=== PATIENT | male | born 1985 | race Caucasian/White ===

== ENCOUNTER 2016-05-28 19:01 | Emergency (ER) | payer SELFPAY | END 2016-05-28 19:03 | disposition left against medical advice (07) | LOC: CED 19:01 | DX: Z53.21 Procedure and treatment not carried out due to patient leaving prior to being seen by health care provider (principal) ==

== ENCOUNTER 2016-05-28 20:19 | Emergency (ER) | payer SELFPAY | END 2016-05-28 20:40 | disposition home or self-care (01) | LOC: CFTX 20:19 | DX: J03.91 Acute recurrent tonsillitis, unspecified (principal) | CPT/HCPCS: 87651; 87880; 99283 ==

== ENCOUNTER 2016-09-07 12:54 | Emergency (ER) | payer OTHER | END 2016-09-07 14:15 | disposition home or self-care (01) | LOC: CFTX 12:54 → CED 12:54 → CFTX 14:09 | DX: M54.16 Radiculopathy, lumbar region (principal); Z88.5 Allergy status to narcotic agent; F17.210 Nicotine dependence, cigarettes, uncomplicated | CPT/HCPCS: 99282; J1885 ==

== ENCOUNTER 2016-10-27 00:45 | Emergency (ER) | payer OTHER ==
[~2016-10-27] VITALS: Ht 172.7 cm; Wt 72.6 kg
== END 2016-10-27 01:35 | disposition home or self-care (01) ==
LOC: CED 00:45
DX: L02.416 Cutaneous abscess of left lower limb (principal); F17.210 Nicotine dependence, cigarettes, uncomplicated; Z88.8 Allergy status to other drugs, medicaments and biological substances; W57.XXXA Bitten or stung by nonvenomous insect and other nonvenomous arthropods, initial encounter
CPT/HCPCS: 99283

== ENCOUNTER 2016-10-29 23:58 | Emergency (ER) | payer OTHER ==
[~2016-10-29] VITALS: Ht 175.3 cm; Wt 72.6 kg
== END 2016-10-30 01:40 | disposition home or self-care (01) ==
LOC: CED 23:58
DX: L02.416 Cutaneous abscess of left lower limb (principal); F17.200 Nicotine dependence, unspecified, uncomplicated; Z88.5 Allergy status to narcotic agent
CPT/HCPCS: 99282

== ENCOUNTER 2016-11-05 20:33 | Emergency (ER) | payer OTHER ==
[~2016-11-05] VITALS: Ht 175.3 cm; Wt 72.6 kg
== END 2016-11-05 21:10 | disposition home or self-care (01) ==
LOC: CFTX 20:33 → CED 20:33 → CFTX 20:49
DX: L02.211 Cutaneous abscess of abdominal wall (principal); F17.210 Nicotine dependence, cigarettes, uncomplicated; Z88.5 Allergy status to narcotic agent
CPT/HCPCS: 10060; 99283